=== PATIENT | male | born 1955 | race Hispanic/Latino ===

== ENCOUNTER → 2018-10-05 | Outpatient (CLI) | payer OTHER ==
--- NOTE | 2018-10-05 08:27 | Diagnostic Imaging Report ---
Lumbar Spine Radiographs: 5 views including obliques Sacrum: 3 views HISTORY: Spondylosis without myelopathy or radiculopathy, lumbar COMPARISON: None available. DISCUSSION: The osseous structures are partially obscured by stool and bowel gas. Five non-rib bearing lumbar vertebral bodies. Mild right convex curvature. Mild age-indeterminate compression deformity of L3. Disc Spaces: Multilevel degenerative changes, most notably moderate at L2-3. Facets: Multilevel hypertrophic degenerative changes, most notably severe at L5-S1 greater than L4-5. Other: Diffuse scattered atherosclerotic vascular calcifications. Mild degenerative changes of the sacroiliac joints. Minimal dorsal subluxation of the second coccygeal segment, but this is a common location of anatomic variance. IMPRESSION: 1. Multilevel degenerative changes, most notably hypertrophic facet arthrosis at L5-S1. 2. Mild age-indeterminate anterior wedge compression deformity of L3. 3. Minimal dorsal subluxation of the second coccygeal segment, but this is a common location of anatomic variance. Signed by: Dr. Servando Monroy D.O., M.M.M. on 10/05/2018 8:24 AM
== END ==
LOC: RAD 07:21
PROVIDERS: ATTEND Internal Medicine
DX: M47.816 Spondylosis without myelopathy or radiculopathy, lumbar region (principal)
CPT/HCPCS: 72110; 72220

== ENCOUNTER → 2019-06-07 | Outpatient (CLI) | payer OTHER ==
--- NOTE | 2019-06-07 08:59 | Diagnostic Imaging Report ---
Left knee, 3 views. History: Left knee pain. Findings: The soft tissues are normal. Bone mineralization is normal. There is no evidence of fracture or dislocation. There are no lytic or sclerotic lesions. There is severe medial joint space narrowing with osteophytosis. Osteophytes are also present in the lateral and patellofemoral compartments. IMPRESSION: Tricompartmental left knee DJD. Signed by: Emiliano Rutherford on 06/07/2019 8:55 AM
== END ==
LOC: RAD 07:53
PROVIDERS: ATTEND Internal Medicine
DX: M17.12 Unilateral primary osteoarthritis, left knee (principal)

== ENCOUNTER → 2025-04-05 | Day surgery (SDC) | payer MEDICARE ==
[2025-04-02 10:07] LABS: BASOPHILS % 1.1 % (0.0-1.0); EOSINOPHILS % 6.2 % (0.0-6.0); LYMPHOCYTES % 24.1 % (18.0-39.1); MONOCYTES % 9.3 % (4.4-11.3); NEUTROPHILS % 59.1 % (38.7-80.0); RED CELL DISTRIBUTION WIDTH 14.1 % (11.7-14.4)
[2025-04-02 10:51] LABS: EST GLOMERULAR FILTRATION RATE 93.0 ML/MIN (>=60)
[~2025-04-05] MED LIST: ASPIRIN EC81 MG PO; ATORVASTATIN CA20 MG PO; CENTRUM ADULTS1 EACH PO; DEXAMETHASONE SOD PHOS INJ 4 MG/ML SDV ONE; FENTANYL CITRATE/PF 100MCG/2 ML INJ ONE; FEROSUL325 MG PO; GABAPENTIN300 MG PO; HYDRALAZINE HCL25 MG PO; HYDROCODONE/APAP 7.5MG-325MG 1 EA TAB ONE; KETOROLAC TROMETHAMINE 30 MG/ML VIAL ONE; LIDOCAINE HCL 2% LOCAL INJ 5 ML SDV VIAL INJ ONE; LOSARTAN-HCTZ1 EAC2 PO; MAGNESIUM OXID400 MG PO; MIDAZOLAM HCL 2 MG/2 ML VIAL ONE; MONTELUKAST SOD10 MG PO; ONDANSETRON HCL INJ 2MG/ML 2ML 2 MG/ML VIAL ONE; PROPOFOL IV EMULSION 10 MG/ML 20 ML VIAL ONE; TIZANIDINE HCL4 MG PO; VITAMIN D3 COM1 EACH PO
[2025-04-05] MEDS: LACTATED RINGER'S 1,000 ML ONE (09:17)
[2025-04-05 11:43] VITALS: TEMP 97.8
[2025-04-05 13:00] VITALS: BP 123/71; PULSE 50; RESP 18; O2SAT 100
== END | disposition home or self-care (01) ==
LOC: OR 14:39
PROVIDERS: ATTEND Surgery
DX: K40.30 Unilateral inguinal hernia, with obstruction, without gangrene, not specified as recurrent (principal); I10 Essential (primary) hypertension; Z79.82 Long term (current) use of aspirin; Z01.810 Encounter for preprocedural cardiovascular examination; Z01.812 Encounter for preprocedural laboratory examination; Z79.899 Other long term (current) drug therapy
CPT/HCPCS: 36415; 49507; 71046; 80048; 85025; 88302; 93005; C1781; J1100; J1885; J2003; J2250; J2405; J2704; J3010; J7121